=== PATIENT | male | born 1955 | race Caucasian/White ===

== ENCOUNTER 2016-10-27 09:41 | Inpatient (IN) | payer OTHER ==
[2016-10-27] MEDS ORDERED: VENTOLIN HFA18 G2 INH (10:01)
[2016-10-27] MEDS ORDERED: ZYRTEC10 M7 PO (10:01)
[2016-10-27] MEDS ORDERED: CYMBALTA30 M1 PO (10:02)
[2016-10-27] MEDS ORDERED: GLUCOTROL10 M1 PO (10:03)
[2016-10-27] MEDS ORDERED: NEURONTIN400 M1 PO (10:03)
[2016-10-27] MEDS ORDERED: LEVEMIR FL100 UNIT/2 SC (10:05)
[2016-10-27] MEDS ORDERED: IPRATROPIUM BRO15 M1 (10:06)
[2016-10-27] MEDS ORDERED: METOPROLOL TART25 M1 PO (10:07)
[2016-10-27] MEDS ORDERED: REMERON15 M1 PO (10:09)
[2016-10-27] MEDS ORDERED: ZOCOR40 M1 PO (10:09)
[2016-10-27] MEDS ORDERED: SPIRIVA18 MC1 INH (10:10)
[2016-10-27 11:23] LABS: BASO % 0.2 % (0-2); EOS % 2.7 % (0-7); EOSINOPHIL ABSOLUTE COUNT 0.3 tho/cmm (0.0-0.7); HCT-HEMATOCRIT 44.9 % (36.0-53.5); HGB-HEMOGLOBIN 15.7 gm/dl (13.5-17.0); IMMATURE GRANULOCYTES ABSOLUTE 0.16 tho/cmm (0-0.03); IMMATURE GRANULOCYTES PERCENT 1.3 % (0-0.3); LYMPH % 21.5 % (20-45); LYMPH ABSOLUTE COUNT 2.7 tho/cmm (0.8-4.5); MCH (MEAN CORPUSCULAR HGB) 32.4 pg (28.0-32.0); MCV (MEAN CELL VOLUME) 92.8 fl (82.0-96.0); MEAN PLATELET VOLUME 9.9 cmc (9.4-12.4); MONO % 6.5 % (0-12); MONOCYTE ABSOLUTE COUNT 0.8 tho/cmm (0.0-1.2); NEUTROPHIL ABSOLUTE COUNT 8.6 tho/cmm (1.6-8.0); NEUTROPHIL-AUTOMATED 8.6 tho/cmm (1.6-8.0); NEUTROPHILS % 67.8 % (40-80); PLATELET COUNT 280 tho/cmm (150-450); RED BLOOD COUNT 4.84 mil/cmm (4.40-5.70); RED CELL DISTRIBUTION WIDTH 13.5 % (12.4-16.4); WHITE BLOOD COUNT 12.7 tho/cmm (4.0-10.0)
[2016-10-27 11:52] LABS: ANION GAP 13 mmol/L (0-20); BLOOD UREA NITROGEN 4 mg/dl (6-24); CALCIUM 9.1 mg/dl (8.5-10.5); CARBON DIOXIDE-VENOUS 26 mmol/L (22-32); CHLORIDE 101 mmol/l (96-110); CREATININE 0.64 mg/dl (0.60-1.30); GLUCOSE 254 mg/dL (70-110); SODIUM 135 mmol/L (135-145); eGFR VALUE FOR BLACK >90 mL/Min
[2016-10-27 11:53] LABS: POTASSIUM 4.5 mmol/L (3.7-5.1)
[2016-10-27] MEDS ORDERED: BACTRIM DS TAB1 EAC2 PO (15:06)
[2016-10-27] MEDS ORDERED: CITALOPRAM HBR40 M1 PO (16:32)
[2016-10-27] MEDS ORDERED: GLUCOSE4 GM PO (16:32)
[2016-10-27] MEDS ORDERED: ASPIRIN EC81 MG PO (16:33)
[2016-10-27] MEDS ORDERED: TYLENOL325 M2 PO (16:33)
[2016-10-28] MEDS ORDERED: BACTRIM DS TAB1 EAC2 PO (08:45)
== END 2016-10-27 15:30 | disposition left against medical advice (07) | DRG 603 ==
LOC: EDMED 09:41 → EMR2 12:28 → 5WD 14:00
PROVIDERS: Emergency Medicine; Family Medicine; ADMIT Hospitalist
DX: L03.113 Cellulitis of right upper limb (principal); E11.40 Type 2 diabetes mellitus with diabetic neuropathy, unspecified; L02.413 Cutaneous abscess of right upper limb; F32.9 Major depressive disorder, single episode, unspecified; F41.9 Anxiety disorder, unspecified; E78.5 Hyperlipidemia, unspecified; I10 Essential (primary) hypertension; E11.65 Type 2 diabetes mellitus with hyperglycemia; F17.210 Nicotine dependence, cigarettes, uncomplicated
CPT/HCPCS: J1815; J3370; J7030

== ENCOUNTER 2016-10-28 08:10 | Emergency (ER) | payer OTHER ==
[~2016-10-28 08:10] MED LIST: ASPIRIN EC81 MG PO; BACTRIM DS TAB1 EAC2 PO; CITALOPRAM HBR40 M1 PO; CYMBALTA30 M1 PO; GLUCOSE4 GM PO; GLUCOTROL10 M1 PO; IPRATROPIUM BRO15 M1; LEVEMIR FL100 UNIT/2 SC; METOPROLOL TART25 M1 PO; NEURONTIN400 M1 PO; REMERON15 M1 PO; SPIRIVA18 MC1 INH; TYLENOL325 M2 PO; VENTOLIN HFA18 G2 INH; ZOCOR40 M1 PO; ZYRTEC10 M7 PO
[2016-10-28] MEDS ORDERED: BACTRIM DS TAB1 EAC2 PO (08:45)
== END 2016-10-28 09:04 ==
LOC: EDMED 08:10
DX: G89.18 Other acute postprocedural pain (principal); M79.601 Pain in right arm; E11.9 Type 2 diabetes mellitus without complications; I10 Essential (primary) hypertension; Z79.4 Long term (current) use of insulin; F17.200 Nicotine dependence, unspecified, uncomplicated